=== PATIENT | male | born 1990 | race African-American/Black ===

== ENCOUNTER 2023-03-17 08:53 | Emergency (ER) | payer MEDICAID ==
[~2023-03-17] VITALS: Ht 185.4 cm; Wt 150.0 kg
[2023-03-17 08:55] VITALS: TEMP 98; O2SAT 97
[2023-03-17] MEDS ORDERED: MECLIZINE 25MG TABLET PO ONE (09:00)
[2023-03-17] MEDS ORDERED: ONDANSETRON 4MG ODT PO ONE (09:00)
[2023-03-17] MEDS ORDERED: DIAZEPAM 5 MG/ML 2ML CPJ IM ONE (09:00)
[2023-03-17 09:23] LABS: HEMATOCRIT. 47.6 % (42.0-52.0); HEMOGLOBIN. 16.2 g/dL (14.0-18.0); LYMPHOCYTES % 40.4 % (20.0-50.0); MEAN CORPUSCULAR HEMOGLOBIN 28.1 pg (28.0-32.0); MEAN CORPUSCULAR VOLUME 82.6 fL (80.0-94.0); MEAN PLATELET VOLUME 9.1 fl (7.4-10.4); MONOCYTES % 6.7 % (2.0-8.0); NEUTROPHILS % 47.9 % (40.0-76.0); PLATELET 248 x1000/uL (130-400); RED BLOOD CELL COUNT 5.77 mill/uL (4.7-6.1); RED CELL DISTRIBUTION WIDTH 14.3 % (11.6-14.6); WHITE BLOOD COUNT 9.4 x1000/uL (4.5-11.0)
[2023-03-17 10:08] LABS: ALANINE AMINOTRANSFERASE 32 IU/L (10-49); ALBUMIN 3.9 g/dL (3.2-4.8); ASPARTATE AMINOTRANSFERASE 28 IU/L (<34); BILIRUBIN TOTAL 0.6 mg/dL (0.1-1.0); CALCIUM 8.6 mg/dL (8.7-10.4); CARBON DIOXIDE 26 mEq/L (21-32); CHLORIDE 103 mEq/L (98-107); GLUCOSE 154 mg/dL (70-105); POTASSIUM 3.4 mEq/L (3.5-5.1); SODIUM 137 mEq/L (136-145); UREA NITROGEN BLOOD 10 mg/dL (9-23)
[2023-03-17 12:00] VITALS: BP 162/99; PULSE 79; RESP 14
[2023-03-17] MEDS ORDERED: AMOXICILLIN/POTASSIUM CLAVULANATE 875/125MG TAB PO ONE (12:15)
[2023-03-17] MEDS ORDERED: MECL-299 MT (12:16)
[2023-03-17] MEDS ORDERED: AMOX1TAB16 MT (12:16)
== END 2023-03-17 12:36 | disposition home or self-care (01) ==
LOC: ER 08:53
DX: R42 Dizziness and giddiness (principal); H66.91 Otitis media, unspecified, right ear; I10 Essential (primary) hypertension; F12.10 Cannabis abuse, uncomplicated
CPT/HCPCS: 99284; 80053; 85025; 36415; 93005; 96372; J8597; Q0162; J3360